=== PATIENT | male | born 1980 | race Caucasian/White ===

== ENCOUNTER → 2019-04-06 | Outpatient (CLI) | payer OTHER | LOC: ULTRA 08:33 | DX: R19.4 Change in bowel habit (principal); R79.89 Other specified abnormal findings of blood chemistry; K76.0 Fatty (change of) liver, not elsewhere classified ==

== ENCOUNTER → 2020-06-13 | Outpatient (CLI) | payer OTHER | LOC: LAB 07:33 | PROVIDERS: ATTEND Neuromusculoskeletal Medicine & OMM | DX: Z20.828 Contact with and (suspected) exposure to other viral communicable diseases (principal) ==

== ENCOUNTER 2021-06-01 12:48 | Emergency (ER) | payer OTHER ==
[~2021-06-01] VITALS: Ht 188 cm; Wt 113.4 kg
[2021-06-01 13:47] LABS: ABSOLUTE NEUTROPHILS 5.9 thou/uL (1.4-8.2); BASOPHILS 1.1 % (0.0-2.0); EOSINOPHILS 1.6 % (0.0-3.0); HEMATOCRIT 41.2 % (42.0-52.0); HEMOGLOBIN 14.4 gm/dL (14.0-18.0); MCH 32.3 pg (26.0-34.0); MCHC 34.9 g/dL (28.0-37.0); MCV 92.3 fL (80.0-100.0); MONOCYTES 9.9 % (1.0-8.0); PLATELET COUNT 162 thou/uL (150-400); POLYS 71.4 % (36.0-66.0); RBC 4.47 mil/uL (4.50-6.00); RDW 12.7 % (10.5-14.5); WBC 8.2 thou/uL (4.0-11.0)
[2021-06-01 13:58] LABS: CALCIUM 9.2 mg/dL (8.5-10.1); CREATININE 1.2 mg/dL (0.7-1.3); POTASSIUM 3.9 mmol/L (3.5-5.1)
[2021-06-01 14:04] LABS: TOTAL BILIRUBIN 1.1 mg/dL (0.2-1.0); TOTAL PROTEIN 7.9 g/dL (6.4-8.2)
[2021-06-01] MEDS ORDERED: NORCO5 PO (15:20)
[2021-06-01] MEDS ORDERED: METRONIDAZOLE500 M4 PO (15:20)
[2021-06-01] MEDS ORDERED: LEVAQUIN 500 M500 MG PO (15:20)
[2021-06-01 15:22] VITALS: BP 131/81
== END 2021-06-01 15:22 | disposition home or self-care (01) ==
LOC: ER 12:48
PROVIDERS: Emergency Medicine
DX: K57.92 Diverticulitis of intestine, part unspecified, without perforation or abscess without bleeding (principal)